=== PATIENT | female | born 1985 | race Two or more races ===

== ENCOUNTER → 2024-01-23 | Day surgery (SDC) | payer OTHER ==
[~2024-01-23] VITALS: Ht 160 cm; Wt 54.4 kg
[~2024-01-23] MED LIST: BUPIVACAINE HCL 30 ML VIAL IJ ONE; CEFTRIAXONE SODIUM 2,000 MG VIAL IV ONE; CELECOXIB200 MG PO; DIBUCAINE 30 GM TUBE RECTAL ONE; LIDOCAINE HCL 1%/EPINEPHRINE 20ML VIAL IJ ONE; MEPERIDINE HCL/PF 50 MG/ML VIAL IM STA; METRONIDAZOLE/SODIUM CHLORIDE 500 MG/100 ML PIGGYBACK IV ONE; NEURONTIN300 MG PO; PERCOCET 5-3251 EACH PO; PERCOCET 5/3251 TAB PO; POVIDONE-IODINE 118 ML BOTT TOP ONE; RINGERS SOLUTION,LACTATED 1,000 ML IV ONE; SURGIFLO APPLICATOR 1 EACH APPL TOP ONE; TYLENOL325 MG PO
[2024-01-23 08:15] LABS: HEMATOCRIT 39.6 % (36.0-45.00); HEMOGLOBIN 13.8 g/dL (12.0-15.00); MEAN CORPUSCULAR HEMOGLOBIN 30.6 pg (27.00-32.0); MEAN CORPUSCULAR HGB CONC 34.8 g/dl (32.0-36.0); PLATELET COUNT 236 K/uL (150-450); RED CELL DISTRIBUTION WIDTH 14.4 % (11.5-14.5)
[2024-01-23 08:48] LABS: INR 0.96; PROTHROMBIN TIME 10.1 SECONDS (9.0-11.5)
[2024-01-23 08:51] LABS: BILIRUBIN TOTAL 0.48 mg/dL (0.3-1.2); CALCIUM 9.3 mg/dL (8.5-10.1); CREATININE SERUM 0.64 mg/dL (0.55-1.02); GFR 104.41; GLOBULINA 3.6 G/DL (2.4-3.5); POTASSIUM 3.58 mEq/L (3.5-5.1); TOTAL PROTEIN 7.6 gm/dL (6.4-8.2)
[2024-01-23 10:09] LABS: URINE APPEARANCE Clear; URINE BILIRRUBIN Negative (NEGATIVE); URINE BLOOD Negative; URINE COLOR Yellow; URINE GLUCOSE Negative (NEGATIVE); URINE KETONE Negative (NEGATIVE); URINE LEUKOCYTE Negative; URINE NITRATE Negative; URINE PROTEIN Negative (NEGATIVE); URINE UROBILINOGEN 0.2 E.U./dl
[2024-01-23 10:13] LABS: URINE BACTERIA 147.4 uL (0.0-1933); URINE EPITHELIAL CELLS 4.4 uL (0.0-38.8); URINE WBC 3.8 uL (0.0-23.2)
[2024-01-23 10:21] LABS: URINE CAST 0.15 uL (0.0-1.40); URINE RBC 1.6 uL (0.0-20.8)
== END | disposition home or self-care (01) ==
LOC: EDSTATUS 07:04 → ER 07:04 → CIR.AMB 08:08 → ER 08:08 → O/R 08:22 → SEC-K 08:22 → O/R 12:18
PROVIDERS: ATTEND General Practice
DX: K60.1 Chronic anal fissure (principal); E03.9 Hypothyroidism, unspecified; Z20.822 Contact with and (suspected) exposure to COVID-19